=== PATIENT | female | born 1985 | race Caucasian/White ===

== ENCOUNTER 2018-07-16 08:52 | Emergency (ER) | payer BC, OTHER ==
[2018-07-16 08:57] VITALS: TEMP 98.8; BMI 23.5
--- NOTE | 2018-07-16 08:58 | PDOC ---
History of Present Illness - General Chief Complaint: Chest Pain Stated Complaint: CHEST PAIN Time Seen by Provider: 07/16/18 08:57 - History of Present Illness Initial Comments: 07/16/18 09:15 Chief complaint 34 result past medical history presents to the emergency department with several day history of intermittent upper abdominal chest and back discomfort. Nonexertional pain is pressure-like comes and goes not clearly associated with meals. Patient states that she has had a lot of stress recently secondary to a very sick family member and a recent in the family No travel no sick contacts no fever no chills no pleurisy no hemoptysis no leg swelling Past History - Past Medical History Allergies/Adverse Reactions: Allergies Allergy/AdvReac Type Severity Reaction Status Date / Time No Known Allergies Allergy Verified 07/16/18 08:53 Home Medications: Ambulatory Orders NK [No Known Home Medication] 07/16/18 Asthma: No Cancer: No Cardiac Disorders: No COPD: No Diabetes: No HTN: No Seizures: No Thyroid Disease: No Other medical history: pt denies - Suicide/Smoking/Psychosocial Hx Smoking History: Never smoked Have you smoked in the past 12 months: No Hx Alcohol Use: No Drug/Substance Use Hx: No Hx Substance Use Treatment: No Review of Systems - Review of Systems Comments:: 07/16/18 09:16 ROS: A complete review of 10 out of 10 review of systems is taken and is negative apart from what is previously mentioned below and in the HPI. *Physical Exam - Vital Signs Last Vital Signs Temp Pulse Resp BP Pulse Ox 98.8 F 95 H 18 134/92 100 07/16/18 08:53 07/16/18 08:53 07/16/18 08:53 07/16/18 08:53 07/16/18 08:53 - Physical Exam Comments: 07/16/18 09:16 Vitals: Triage Vital signs reviewed General Appearance: no acute distress, well nourished well developed, Head: Atraumatic, Neck: Supple;No Nucal rigidity Chest Wall: Nontender Cardiac: Regular rate and rhythym, no murmurs, no rubs, no gallops, Lungs: Clear to auscultation bilateral, good air movement bilaterally, Abdomen: Soft, non distended, normal bowel sounds, non tender to palpation Extremities: Full range of motion to all extremities, no cyanosis, clubbing, or edema Skin: Warm and dry, no rashes or lesions, no rash, no petechiae Psych: normal mood, normal affect Heart Score/ECG Review - History History: Slightly suspicious - Electrocardiogram EKG: Normal - Age Age: </= 45 - Risk Factors Based on the list above the patient has:: No risk factors known - ECG Impressions Comment:: 07/16/18 09:17 EKG performed at 854 demonstrates normal sinus rhythm no ST elevations or T- wave inversions. Interpreted by me. ED Treatment Course - LABORATORY CBC & Chemistry Diagram: 07/16/18 09:20 07/16/18 09:20 Medical Decision Making - Medical Decision Making 07/16/18 11:52 Nonischemic EKG troponin negative d-dimer sent given patient is on oral antral contraceptives D-dimer elevated CTA ordered No evidence of PE Atypical chest discomfort possibly GI in etiology Recommend fluids [id number] Protonix Findings, need follow-up and strict return instructions discussed patient. *DC/Admit/Observation/Transfer Diagnosis at time of Disposition: Atypical chest pain - Discharge Dispostion Disposition: HOME Condition at time of disposition: Stable Decision to Admit order: No - Referrals Referrals: David Conklin MD [Staff Physician] - - Patient Instructions Printed Discharge Instructions: DI for Atypical Chest Pain Additional Instructions: Follow-up with your primary care provider this week. Return to the emergency department for any severe worsening symptoms or for any concerns. He can also follow-up with Dr. Conklin cardiology as well. Drink plenty fluids. Take over- the-counter Pepcid as directed on package for the next 2 weeks. - Post Discharge Activity
[2018-07-16] MEDS ORDERED: MAG HYDROX/AL HYDROX/SIMETH 30 ML UNIT-DOSE CUP PO ONE (09:09)
[2018-07-16] MEDS ORDERED: ONDANSETRON *ODT* 4 MG TABLET SL ONE (09:09)
[2018-07-16] MEDS ORDERED: FAMOTIDINE 20 MG TABLET PO ONE (09:09)
[2018-07-16] MEDS ORDERED: MAG HYDROX/AL HYDROX/SIMETH 30 ML UNIT-DOSE CUP ONE (09:13)
[2018-07-16] MEDS ORDERED: FAMOTIDINE 20 MG TABLET ONE (09:14)
[2018-07-16] MEDS ORDERED: ONDANSETRON *ODT* 4 MG TABLET ONE (09:14)
[2018-07-16 09:52] LABS: ALBUMIN 3.6 g/dl (3.4-5.0); ALK PHOS 34 U/L (45-117); ANION GAP 8 MMOL/L (8-16); BILIRUBIN,TOTAL 0.6 mg/dl (0.2-1); BLOOD UREA NITROGEN 12 mg/dl (7-18); CALCIUM 8.9 mg/dl (8.5-10); CHLORIDE 104 mmol/L (98-107); CO2 23 mmol/L (21-32); CREATININE 0.7 mg/dl (0.55-1.3); GLUCOSE,RANDOM 87 mg/dl (74-106); POTASSIUM 3.5 mmol/L (3.5-5.1); SGOT/AST 21 U/L (15-37); SGPT/ALT 12 U/L (13-61); SODIUM 135 mmol/L (136-145); TOT PROT 7.7 g/dl (6.4-8.2)
[2018-07-16 09:59] LABS: BASO % 0.7 % (0-2.0); EOS % 1.3 % (0-4.5); HEMATOCRIT 34.7 % (32.4-45.2); HEMOGLOBIN 11.7 GM/dl (10.7-15.3); LYMPH % 50.4 % (8-40); MCH 27.5 pg (25.7-33.7); MCHC 33.6 g/dl (32.0-36.0); MEAN CELL VOLUME 81.6 fl (80-96); MEAN PLT VOLUME 8.7 fl (7.5-11.1); MONO % 11.4 % (3.8-10.2); NEUT % 36.2 % (42.8-82.8); PLATELET COUNT 155 K/MM3 (134-434); RBC 4.25 M/mm3 (3.60-5.2); RDW 12.9 % (11.6-15.6); WHITE BLOOD COUNT 3.4 K/mm3 (4.0-10.8)
--- NOTE | 2018-07-16 10:58 | PDOC ---
*Physical Exam - Vital Signs Last Vital Signs Temp Pulse Resp BP Pulse Ox 98.8 F 95 H 18 134/92 100 07/16/18 08:53 07/16/18 08:53 07/16/18 08:53 07/16/18 08:53 07/16/18 08:53 ED Treatment Course - LABORATORY CBC & Chemistry Diagram: 07/16/18 09:20 07/16/18 09:20 - ADDITIONAL ORDERS Additional order review: Laboratory Results 07/16/18 07/16/18 07/16/18 09:20 09:20 09:20 D-Dimer 1865 H Sodium 135 L Potassium 3.5 Chloride 104 Carbon Dioxide 23 Anion Gap 8 BUN 12 Creatinine 0.7 Creat Clearance w eGFR 95.79 Random Glucose 87 Calcium 8.9 Total Bilirubin 0.6 AST 21 ALT 12 L Alkaline Phosphatase 34 L Troponin I < 0.03 Total Protein 7.7 Albumin 3.6 Urine Color Urine Appearance Urine pH Urine Protein Urine Glucose (UA) Urine Ketones Urine Blood Urine Nitrite Urine Bilirubin Urine Urobilinogen Ur Leukocyte Esterase 07/16/18 09:05 D-Dimer Sodium Potassium Chloride Carbon Dioxide Anion Gap BUN Creatinine Creat Clearance w eGFR Random Glucose Calcium Total Bilirubin AST ALT Alkaline Phosphatase Troponin I Total Protein Albumin Urine Color Yellow Urine Appearance Clear Urine pH 5.5 Urine Protein Negative Urine Glucose (UA) Negative Urine Ketones Negative Urine Blood 1+ H Urine Nitrite Negative Urine Bilirubin Negative Urine Urobilinogen 0.2 Ur Leukocyte Esterase Negative 07/16/18 09:20 RBC 4.25 MCV 81.6 MCHC 33.6 RDW 12.9 MPV 8.7 Neutrophils % 36.2 L Lymphocytes % 50.4 H Monocytes % 11.4 H Eosinophils % 1.3 Basophils % 0.7 - Medications Given in the ED: ED Medications Discontinued Medications Generic Name Dose Route Start Last Admin Trade Name Freq PRN Reason Stop Dose Admin Al Hydroxide/Mg Hydroxide 30 ml 07/16/18 09:09 07/16/18 09:20 Mylanta Oral Suspension - PO 07/16/18 09:10 30 ml ONCE ONE Administration Famotidine 20 mg 07/16/18 09:09 07/16/18 09:20 Pepcid - PO 07/16/18 09:10 20 mg ONCE ONE Administration Ondansetron HCl 4 mg 07/16/18 09:09 07/16/18 09:20 Zofran Odt - SL 07/16/18 09:10 Not Given ONCE ONE Medical Decision Making - Medical Decision Making 07/16/18 11:15 Care of this patient received from Laboratory evaluation including CBC/chemistry profile/troponin/d-dimer generally unremarkable(WBC 3400 with lymphocytic predominance) except for d- dimer elevated at 1865 Results discussed with the patient. Patient is aware that she is at some risk for thromboembolic process because she is taking oral contraceptives. Patient states that she recently (3 months ago) was changed from low hormonal OC to one with higher level estrogen because of breakthrough bleeding. She agrees to further workup to rule out pulmonary emboli. She also states that she has had nontender/nonedematous lump behind right knee that she noted incidentally and consulted orthopedist: MRI performed last week but patient does not results. She denies any edema/pain/tenderness of either lower extremity 07/16/18 11:46 Care signed out to Dr. Jean-Baptiste *DC/Admit/Observation/Transfer Diagnosis at time of Disposition: Atypical chest pain - Discharge Dispostion Disposition: HOME Condition at time of disposition: Stable - Referrals Referrals: David Conklin MD [Staff Physician] - - Patient Instructions Printed Discharge Instructions: DI for Atypical Chest Pain Additional Instructions: Follow-up with your primary care provider this week. Return to the emergency department for any severe worsening symptoms or for any concerns. He can also follow-up with Dr. Conklin cardiology as well. Drink plenty fluids. Take over- the-counter Pepcid as directed on package for the next 2 weeks. - Post Discharge Activity
[2018-07-16 11:16] VITALS: BP 118/86; PULSE 81
[2018-07-17 08:07] LABS: EPITHELIAL CELLS 1+ /hpf
--- NOTE | 2018-07-17 09:49 | EKG ---
Test Reason : Blood Pressure : / mmHG Vent. Rate : 086 BPM Atrial Rate : 086 BPM P-R Int : 144 ms QRS Dur : 084 ms QT Int : 354 ms P-R-T Axes : 063 055 056 degrees QTc Int : 423 ms NORMAL SINUS RHYTHM NORMAL ECG NO PREVIOUS ECGS AVAILABLE Confirmed by CARO EMANUEL, NEIL ([id number]) on 07/17/2018 9:49:20 AM Referred By: MOSSE MORGAN Confirmed By:NEIL ELIZONDO MD
== END 2018-07-16 12:15 | disposition home or self-care (01) ==
LOC: FER 08:52
DX: R07.89 Other chest pain (principal)
CPT/HCPCS: 36415; 71275-TC; 80053; 81003; 81015; 84484; 84703; 85025; 85379; 93005; 99284-25

== ENCOUNTER 2018-07-19 22:04 | Emergency (ER) | payer BC ==
[2018-07-19 22:14] VITALS: BP 134/86; PULSE 73; TEMP 98; BMI 23.4
--- NOTE | 2018-07-19 22:20 | PDOC ---
History of Present Illness - General Chief Complaint: Headache Stated Complaint: HEADACHE/FACIAL NUMBNESS Time Seen by Provider: 07/19/18 22:17 History Source: Patient Exam Limitations: No Limitations - History of Present Illness Initial Comments: 07/19/18 22:25 This is a healthy 33-year-old female who comes in complaining of frontal and temporal headache bilateral times several weeks. Patient denies any nausea, blurry vision, neck pain, fever, chills, similar symptoms in the past. Patient is also complaining of some mild numbness on the left forehead and left side of her face. Patient denies any numbness anywhere else and denies any weakness or any other neurological complaints. Patient denies history of similar complaints in the past. Allergies: as per nursing notes Past Medical History: none Social history: Lives with family. No smoking. No alcohol. No illicit drugs. Surgical history: None General: No fevers or chills, no weakness, no weight loss HEENT: No change in vision. No sore throat,. No ear pain CardioVascular: no chest discomfort. No shortness of breath Respiratory:No cough, or wheezing. Gastrointestinal: no nausea, vomiting, diarrhea or constipation, No rectal bleeding Genitourinary: No dysuria, hematuria, or frequency Musculoskeletal: No joint or muscle pain or swelling Neurologic: No headache, vertigo, dizziness or loss of consciousness Psychiatric: nor depression Skin: No rashes or easy bruising Endocrine: no increased thirst or abnormal weight change Allergic: no skin or latex allergy All other systems reviewed and normal GENERAL: The patient is awake, alert, and fully oriented, in no acute distress. HEAD: Normal with no signs of trauma. EYES: Pupils equal, round and reactive to light, extraocular movements intact, sclera anicteric, conjunctiva clear. EXTREMITIES:atraumatic, Normal range of motion, no edema. NEUROLOGICAL: Normal speech, normal gait. PSYCH: Normal mood, normal affect. SKIN: Warm, Dry, normal turgor, no rashes or lesions noted. NEURO: Mental Status: The patient is alert and oriented to person, place, and time with normal speech. Memory is normal and thought process is intact. Cranial Nerves II - XII is intact. Reflexes: Biceps, brachioradialis, triceps, patellar, and Achilles are 2/4 bilaterally. No clonus. Plantar reflex is downward bilaterally. Sensation: Patient reports decreased sensation left forehead and left side of face. Otherwise Sensation is intact bilaterally to pain and light touch. Two- point discrimination is intact. Motor: Good muscle tone. Strength is 5/5 bilaterally at the deltoid, biceps, triceps, quadriceps, and hamstrings. Cerebellar: Jefuja-or-cnhz and lqem-nt-boda test normal bilaterally. Balances with eyes closed (Romberg). Rapid alternating movements normal. Gait is steady with a normal base. Coordination is intact as measured by heel walk and toe walk. Past History - Past Medical History Allergies/Adverse Reactions: Allergies Allergy/AdvReac Type Severity Reaction Status Date / Time No Known Allergies Allergy Verified 07/16/18 08:53 Home Medications: Ambulatory Orders Levonorgestrel-Ethin Estradiol [Levora-28 Tablet] 1 each PO DAILY 07/19/18 Asthma: No Cancer: No Cardiac Disorders: No COPD: No Diabetes: No HTN: No Psychiatric Problems: Yes (ANXIETY) Seizures: No Thyroid Disease: No - Suicide/Smoking/Psychosocial Hx Smoking History: Never smoked Have you smoked in the past 12 months: No Hx Alcohol Use: No Drug/Substance Use Hx: No Hx Substance Use Treatment: No *Physical Exam - Vital Signs Last Vital Signs Temp Pulse Resp BP Pulse Ox 98 F 73 16 134/86 100 07/19/18 22:10 07/19/18 22:10 07/19/18 22:10 07/19/18 22:10 07/19/18 22:10 *DC/Admit/Observation/Transfer Diagnosis at time of Disposition: Left facial numbness Headache Qualifiers: Headache type: unspecified Headache chronicity pattern: unspecified pattern Intractability: not intractable Qualified Code(s): R51 - Headache - Discharge Dispostion Disposition: HOME Condition at time of disposition: Stable Decision to Admit order: No - Referrals - Patient Instructions Additional Instructions: It is important he follow-up with a neurologist as soon as possible once her symptoms could be suggestive of multiple sclerosis. Tylenol or Motrin U can alternate acetaminophen 2 tablets with ibuprofen 3 tablets every 4 hours if needed. Return to the emergency department immediately with ANY new, persistent or worsening symptoms. Continue any medications as previously prescribed by your physician. You should follow up with your primary doctor as soon as possible regarding today's emergency department visit. . Please make sure your doctor reviews the results of your emergency evaluation. Thank you for coming to the Emergency Department today for your care. It was a pleasure to see you today. Please note that your evaluation is INCOMPLETE until you follow-up with your doctor. - Post Discharge Activity
[2018-07-19] MEDS ORDERED: KETOROLAC TROMETHAMINE 60 MG/2 ML VIAL IM ONE (23:18)
[2018-07-19] MEDS ORDERED: KETOROLAC TROMETHAMINE 60 MG/2 ML VIAL ONE (23:20)
== END 2018-07-20 01:33 | disposition home or self-care (01) ==
LOC: FER 22:04
PROC: 3E0233Z Introduction of Anti-inflammatory into Muscle, Percutaneous Approach (ICD-10-PCS; principal; 2018-07-19)
DX: R51 Headache (principal); R20.0 Anesthesia of skin; F41.9 Anxiety disorder, unspecified
CPT/HCPCS: 70450-TC; 70486-TC; 99281-25

== ENCOUNTER 2020-06-20 08:20 | Inpatient (IN) | payer BC ==
[2020-06-20] MEDS: DEXTROSE 5%-LACTATED RINGERS 1,000 ML IV SCH ×2 (09:00→16:15)
[2020-06-20 09:34] VITALS: BMI 29.0
[2020-06-20 09:40] LABS: BASO % 0.3 % (0-2.0); EOS % 1.3 % (0-4.5); HEMATOCRIT 28.6 % (32.4-45.2); LYMPH % 21.7 % (8-40); MCH 31.5 pg (25.7-33.7); MEAN PLT VOLUME 7.3 fl (7.5-11.1); MONO % 9.9 % (3.8-10.2); NEUT % 66.8 % (42.8-82.8); PLATELET COUNT 156 K/MM3 (134-434); RBC 3.18 M/mm3 (3.60-5.2); RDW 12.3 % (11.6-15.6); WHITE BLOOD COUNT 5.8 K/mm3 (4.0-10.0)
[2020-06-20 09:52] LABS: INR 0.89 (0.83-1.09)
[2020-06-20 09:55] LABS: ACTIVATED PTT 24.3 SECONDS (25.2-36.5)
[2020-06-20 10:05] LABS: POTASSIUM 4.2 mmol/L (3.5-5.1)
[2020-06-20 10:07] LABS: BLOOD UREA NITROGEN 8.8 mg/dL (7-18); CALCIUM 8.8 mg/dL (8.5-10.1)
[2020-06-20 10:10] LABS: CREATININE 0.6 mg/dL (0.55-1.3)
[2020-06-20] MEDS ORDERED: DINOPROSTONE 10 MG VAGINAL SUPPOSITORY VG ONE (11:47)
[2020-06-20] MEDS ORDERED: OXYTOCIN 30 UNITS in 0.9% NS 30 UNIT/500 ML INFUS.BAG IVPB SCH (23:45)
[2020-06-21] MEDS ORDERED: OXYTOCIN 30 UNITS in 0.9% NS 30 UNIT/500 ML INFUS.BAG IVPB ONE ×2 (00:39→08:24)
[2020-06-21] MEDS: DEXTROSE 5%-LACTATED RINGERS 1,000 ML IV SCH (08:00)
[2020-06-21] MEDS ORDERED: FENTANYL/BUPIVACAINE/NS/PF - PCEA - 50 ML DISP.SYRIN EP ONE (10:36)
[2020-06-21] MEDS ORDERED: PCA PUMP NR ONE (10:37)
[2020-06-21] MEDS ORDERED: ELECTROLYTE-148 SOLN 500 ML IV ONE (10:40)
[2020-06-21] MEDS: FENTANYL/BUPIVACAINE/NS/PF - PCEA - 50 ML DISP.SYRIN EP SCH (11:00)
[2020-06-21] MEDS: ELECTROLYTE-148 SOLN 1,000 ML IV SCH (11:10)
[2020-06-21] MEDS ORDERED: NALOXONE HCL 0.4 MG/ML VIAL IVPUSH PRN (11:26)
[2020-06-21] MEDS ORDERED: BUPIVACAINE HCL/PF 0.25% (2.5MG/ML) 10 ML VIAL ONE (13:34)
[2020-06-21] MEDS ORDERED: LIDOCAINE HCL 1% PRESERVATIVE FREE - 30ML VIAL ONE (13:35)
[2020-06-21] MEDS ORDERED: OXYTOCIN 20 UNITS in 0.9% NS 20 UNIT/1,000 ML INFUS.BAG IV ONE (13:35)
[2020-06-21] MEDS: OXYTOCIN 20 UNITS in 0.9% NS 20 UNIT/1,000 ML INFUS.BAG IV SCH (14:38)
[2020-06-21] MEDS ORDERED: BENZOCAINE 20% 57 GM BOTTLE TP PRN (14:59)
[2020-06-21] MEDS ORDERED: BISACODYL 10 MG SUPP.RECT RC PRN (14:59)
[2020-06-21] MEDS ORDERED: METHYLERGONOVINE MALEATE 0.2 MG/1 ML AMP IM PRN (14:59)
[2020-06-21] MEDS ORDERED: BENZOCAINE 28 GM HEMORRHOIDAL OINTMENT TP PRN (14:59)
[2020-06-21] MEDS ORDERED: WITCH HAZEL 50% (TUCKS) 40 PAD/JAR PAD TP PRN (14:59)
[2020-06-21] MEDS: IBUPROFEN 600 MG TABLET (FP) PO PRN (18:07)
[2020-06-21] MEDS: ACETAMINOPHEN 325 MG TABLET (FP) PO PRN (18:08)
[2020-06-21] MEDS ORDERED: ELECTROLYTE-148 SOLN 1,000 ML IV ONE (23:45)
[2020-06-22 09:36] LABS: BASO % 0.6 % (0-2.0); EOS % 1.3 % (0-4.5); HEMATOCRIT 29.1 % (32.4-45.2); HEMOGLOBIN 10.4 GM/dL (10.7-15.3); LYMPH % 22.8 % (8-40); MCH 31.7 pg (25.7-33.7); MCHC 35.7 g/dl (32.0-36.0); MEAN CELL VOLUME 88.9 fl (80-96); MEAN PLT VOLUME 7.7 fl (7.5-11.1); MONO % 6.2 % (3.8-10.2); NEUT % 69.1 % (42.8-82.8); PLATELET COUNT 150 K/MM3 (134-434); RBC 3.27 M/mm3 (3.60-5.2); RDW 12.4 % (11.6-15.6); WHITE BLOOD COUNT 7.5 K/mm3 (4.0-10.0)
[2020-06-22] MEDS: PRENATAL VITAMINS W/ FOLIC ACID TABLET (FP) PO SCH (09:39)
[2020-06-22] MEDS: IBUPROFEN 600 MG TABLET (FP) PO PRN (16:05)
[2020-06-22] MEDS: ACETAMINOPHEN 325 MG TABLET (FP) PO PRN (16:06)
[2020-06-22] MEDS: OXYTOCIN 20 UNITS in 0.9% NS 20 UNIT/1,000 ML INFUS.BAG IV SCH (19:22)
[2020-06-22] MEDS: FENTANYL/BUPIVACAINE/NS/PF - PCEA - 50 ML DISP.SYRIN EP SCH (19:22)
[2020-06-22] MEDS: ELECTROLYTE-148 SOLN 1,000 ML IV SCH (19:22)
[2020-06-22] MEDS: DEXTROSE 5%-LACTATED RINGERS 1,000 ML IV SCH (19:22)
[2020-06-22] MEDS ORDERED: SENNOSIDES/DOCUSATE COMBO (SENNA PLUS) TABLET (UD) PO PRN (22:00)
[2020-06-23] MEDS: ACETAMINOPHEN 325 MG TABLET (FP) PO PRN (09:43)
[2020-06-23] MEDS: PRENATAL VITAMINS W/ FOLIC ACID TABLET (FP) PO SCH (09:43)
[2020-06-23] MEDS: IBUPROFEN 600 MG TABLET (FP) PO PRN (09:44)
[2020-06-23 12:38] VITALS: BP 117/74; PULSE 75; TEMP 98.6
== END 2020-06-23 12:10 | disposition home or self-care (01) | DRG 807 ==
LOC: JLDR 08:20 → J3W 06-21 16:25
PROVIDERS: ADMIT Obstetrics & Gynecology; ATTEND Obstetrics & Gynecology
PROC: 3E0P7VZ Introduction of Hormone into Female Reproductive, Via Natural or Artificial Opening (ICD-10-PCS; 2020-06-20)
PROC: 10E0XZZ Delivery of Products of Conception, External Approach (ICD-10-PCS; principal; 2020-06-21)
PROC: 0HQ9XZZ Repair Perineum Skin, External Approach (ICD-10-PCS; 2020-06-21)
PROC: 0W8NXZZ Division of Female Perineum, External Approach (ICD-10-PCS; 2020-06-21)
DX: O70.0 First degree perineal laceration during delivery (principal); Z37.0 Single live birth; Z3A.39 39 weeks gestation of pregnancy
CPT/HCPCS: 36415; 59409; 80048; 85025; 85610; 85730; 86780; 86850; 86900; 86901

== ENCOUNTER 2022-05-29 16:59 | Emergency (ER) | payer BC ==
[2022-05-29 17:14] VITALS: BP 158/103; PULSE 113; RESP 20; TEMP 98.6; BMI 25.3
[2022-05-29] MEDS ORDERED: ACETAMINOPHEN 325 MG TABLET (FP) PO ONE (17:54)
[2022-05-29] MEDS ORDERED: IBUPROFEN 400 MG TABLET (FP) PO ONE (18:00)
[2022-05-29] MEDS ORDERED: KETOROLAC TROMETHAMINE 30 MG/1 ML VIAL ONE (18:17)
[2022-05-29] MEDS ORDERED: KETOROLAC TROMETHAMINE 30 MG/1 ML VIAL IVPUSH ONE (18:17)
[2022-05-29 18:33] LABS: HEMATOCRIT 30.1 % (32.4-45.2); HEMOGLOBIN 10.4 G/dL (10.7-15.3); MCH 25.8 pg (25.7-33.7); MCHC 34.7 g/dl (32.0-36.0); MEAN CELL VOLUME 74.3 fl (80-96); MEAN PLT VOLUME 8.3 fl (7.5-11.1); PLATELET COUNT 203.2 10^3/uL (134-434); RBC 4.05 10^6/uL (3.60-5.2); RDW 15.7 % (11.6-15.6)
[2022-05-29 18:40] LABS: ALBUMIN 3.9 g/dl (3.4-5.0); BILIRUBIN,TOTAL 0.6 mg/dl (0.2-1); CALCIUM 9.1 mg/dl (8.5-10); CREATININE 0.7 mg/dl (0.55-1.3); TOT PROT 7.8 g/dl (6.4-8.2)
[2022-05-29 21:17] LABS: ANISOCYTOSIS 1+
[2022-05-29 21:18] LABS: PLATELET ESTIMATE ADEQUATE
== END 2022-05-29 22:17 | disposition home or self-care (01) ==
LOC: FER 16:59
PROC: 3E033GC Introduction of Other Therapeutic Substance into Peripheral Vein, Percutaneous Approach (ICD-10-PCS; principal; 2022-05-29)
DX: N83.201 Unspecified ovarian cyst, right side (principal)
CPT/HCPCS: 36415; 74177-TC; 76830-TC; 80053; 85027; 99285-25; Q9967

== ENCOUNTER 2023-11-06 23:04 | Emergency (ER) | payer BC ==
[2023-11-06 23:14] VITALS: BP 119/88; PULSE 82; RESP 18; TEMP 98.6; BMI 23.8
[2023-11-06] MEDS ORDERED: ACETAMINOPHEN INJECTION 100 ML IVPB ONE (23:48)
[2023-11-07] MEDS: ACETAMINOPHEN 1000 MG/100 ML BAG IVPB ONE (00:03)
[2023-11-07] MEDS: SODIUM CHLORIDE 1,000 ML IV STA (00:03)
[2023-11-07 01:05] LABS: PH,URINE 6.5 (5.0-8.0); URINE APPEARANCE CLEAR; URINE BILIRUBIN NEGATIVE (NEGATIVE); URINE COLOR YELLOW; URINE GLUCOSE (UA) NEGATIVE (NEGATIVE); URINE KETONE NEGATIVE (NEGATIVE); URINE LEUK ESTERASE NEGATIVE (NEGATIVE); URINE NITRITE NEGATIVE (NEGATIVE); URINE PROTEIN NEGATIVE (NEGATIVE); URINE UROBILINOGEN 0.2 mg/dL (0.2-1.0)
[2023-11-07 01:13] LABS: BASO % 1.1 % (0-2.0); EOS % 0.8 % (0-4.5); HEMATOCRIT 30.2 % (32.4-45.2); LYMPH % 40.4 % (8-40); MCH 25.3 pg (25.7-33.7); MEAN CELL VOLUME 76.6 fl (80-96); MEAN PLT VOLUME 8.1 fl (7.5-11.1); NEUT % 43.7 % (42.8-82.8); PLATELET COUNT 175 10^3/uL (134-434); RBC 3.94 M/mm3 (3.60-5.2); RDW 15.1 % (11.6-15.6); WHITE BLOOD COUNT 4.6 K/mm3 (4.0-10.0)
[2023-11-07 01:32] LABS: CALCIUM 8.9 mg/dL (8.5-10.1)
[2023-11-07 01:33] LABS: ALBUMIN 3.6 g/dl (3.4-5.0)
[2023-11-07 01:35] LABS: POTASSIUM 3.6 mmol/L (3.5-5.1)
[2023-11-07 01:36] LABS: CREATININE 0.7 mg/dL (0.55-1.3)
[2023-11-07 01:37] LABS: BILIRUBIN,TOTAL 0.3 mg/dL (0.2-1)
[2023-11-07 01:38] LABS: TOT PROT 7.3 g/dl (6.4-8.2)
[2023-11-07] MEDS ORDERED: FAMOTIDINE 20 MG/50 ML IVPB 20 MG/50 ML MG IVPB ONE (02:21)
[2023-11-07] MEDS: FAMOTIDINE 20 MG/50 ML IVPB 20 MG/50 ML MG IVPB ONE (02:27)
== END 2023-11-07 03:31 | disposition home or self-care (01) ==
LOC: FER 23:04
PROC: 3E033GC Introduction of Other Therapeutic Substance into Peripheral Vein, Percutaneous Approach (ICD-10-PCS; principal; 2023-11-07)
PROC: 3E033NZ Introduction of Analgesics, Hypnotics, Sedatives into Peripheral Vein, Percutaneous Approach (ICD-10-PCS; 2023-11-07)
PROC: 3E0337Z Introduction of Electrolytic and Water Balance Substance into Peripheral Vein, Percutaneous Approach (ICD-10-PCS; 2023-11-07)
DX: N28.82 Megaloureter (principal); K29.00 Acute gastritis without bleeding; R10.12 Left upper quadrant pain; R10.13 Epigastric pain
CPT/HCPCS: 36415; 74177-TC; 80053; 81003; 83690; 85025; 99285-25; J0131

== ENCOUNTER 2024-01-03 21:32 | Emergency (ER) | payer BC ==
[2024-01-03 21:47] VITALS: BP 133/92; PULSE 67; RESP 18; TEMP 98.6; BMI 23.8
[2024-01-03] MEDS ORDERED: MAG HYDROX/AL HYDROX/SIMETH 30 ML UNIT-DOSE CUP ONE (22:37)
[2024-01-03] MEDS ORDERED: FAMOTIDINE 20 MG TABLET ONE (22:37)
[2024-01-03] MEDS: MAG HYDROX/AL HYDROX/SIMETH 30 ML UNIT-DOSE CUP PO ONE (22:39)
[2024-01-03] MEDS: FAMOTIDINE 20 MG TABLET PO ONE (22:39)
== END 2024-01-03 22:57 | disposition home or self-care (01) ==
LOC: FER 21:32
DX: R10.13 Epigastric pain (principal); K21.9 Gastro-esophageal reflux disease without esophagitis; K29.70 Gastritis, unspecified, without bleeding; K29.80 Duodenitis without bleeding
CPT/HCPCS: 71046-TC-FY; 93005; 99284-25